=== PATIENT | female | born 1965 | race Caucasian/White ===

== ENCOUNTER 2018-10-11 20:45 | Emergency (ER) | payer MEDICAID ==
[~2018-10-11] VITALS: Ht 160 cm; Wt 98.0 kg
[2018-10-11 21:04] VITALS: Ht 160 cm; Wt 98.0 kg
[2018-10-11 22:04] LABS: C REACTIVE PROTEIN 1.8 mg/dL (<=0.9); URIC ACID 6.5 mg/dL (2.6-6.0)
[2018-10-11 22:50] VITALS: BP 120/78
== END 2018-10-11 22:50 | disposition home or self-care (01) ==
LOC: ED 20:45
PROVIDERS: Emergency Medicine
DX: M75.92 Shoulder lesion, unspecified, left shoulder (principal); J45.909 Unspecified asthma, uncomplicated
CPT/HCPCS: J1885; J7512; Q0092